=== PATIENT | female | born 2000 | race Two or more races ===

== ENCOUNTER 2022-07-17 13:26 | Emergency (ER) | payer OTHER ==
[2022-07-17 14:15] VITALS: RESP 18; BMI 26.7
[2022-07-17 16:18] VITALS: BP 132/89; PULSE 82; TEMP 97.7
== END 2022-07-17 16:20 | disposition home or self-care (01) ==
LOC: JER 13:26
DX: R47.89 Other speech disturbances (principal); T43.505A Adverse effect of unspecified antipsychotics and neuroleptics, initial encounter
CPT/HCPCS: 93005; 93010; 99283-25